=== PATIENT | male | born 1960 | race American Indian/Alaskan Native ===

== ENCOUNTER 2018-06-11 15:22 | Inpatient (IN) | payer BC ==
[2018-06-11] MEDS ORDERED: NACL 0.9% 500 ML 500 ML IV ONE (15:35)
[2018-06-11] MEDS ORDERED: MOTRIN PO ONE ×2 (15:43→15:44)
[2018-06-11 15:55] LABS: Hematocrit 30.9 % (35.5-45.6); Hemoglobin 10.2 gm/dl (11.8-15.2); Mean Corpuscular HGB Conc 33 % (32-34); Mean Corpuscular Hemoglobin 29 pg (28-32); Mean Corpuscular Volume 89 fl (84-94); Red Blood Count 3.49 M/mm3 (3.65-5.03); Red Cell Distribution Width 14.4 % (13.2-15.2)
[2018-06-11 16:12] LABS: INR 1.2 (0.87-1.13)
[2018-06-11 16:22] LABS: Calcium 8.3 mg/dL (8.4-10.2)
--- NOTE | 2018-06-11 16:31 | XRay Report ---
FINAL REPORT EXAM: XR CHEST ROUTINE 2V HISTORY: possible Sepsis TECHNIQUE: Frontal and lateral chest x-ray. PRIORS: None. FINDINGS: Cardiac and mediastinal silhouette within normal limits. Lungs are normally expanded, without significant vascular congestion. No focal consolidation, apparent pleural effusion or pneumothorax. Moderate dextroconvex curvature in the thoracic spine. IMPRESSION: 1. No acute consolidation.
[2018-06-11] MEDS ORDERED: VANCOMYCIN 1,250 MG in NACL 0.9% 500 ML 500 ML IV ONE (16:35)
[2018-06-11] MEDS ORDERED: NACL 0.9% 1000 ML IV ONE (16:35)
--- NOTE | 2018-06-11 16:41 | Emergency Department Report ---
ED General Adult HPI - General Chief complaint: Fever Stated complaint: GENERAL PAIN Time Seen by Provider: 06/11/18 16:34 Source: patient, family Mode of arrival: Wheelchair Limitations: No Limitations - History of Present Illness Initial comments: Patient is a 57-year-old male no significant past medical history who presents with fever that has been going on for the last week. Patient states that he's been having night sweats and shaking and nausea and vomiting. He states that he was in [place] for the last 2 weeks and he complains about pain throughout all of his body. Pain is moderate about a 3 out of 10 nothing makes it better nothing makes it worse is intermittent. He also states that he lost 10-12 pounds recently. He denies having any blood in his stool and states that he was not vaccinated and he did not take any anti Malaria drugs [place]. Severity scale (0 -10): 1 - Related Data Allergies Allergy/AdvReac Type Severity Reaction Status Date / Time No Known Allergies Allergy Unverified 06/11/18 15:29 ED Review of Systems ROS: Stated complaint: GENERAL PAIN Other details as noted in HPI Constitutional: chills, fever Eyes: denies: eye pain, eye discharge, vision change ENT: denies: ear pain, throat pain Respiratory: denies: cough, shortness of breath, wheezing Cardiovascular: denies: chest pain, palpitations Endocrine: no symptoms reported Gastrointestinal: nausea. denies: abdominal pain, diarrhea Genitourinary: denies: urgency, dysuria Musculoskeletal: arthralgia. denies: back pain, joint swelling Skin: denies: rash, lesions Neurological: denies: headache, weakness, paresthesias Psychiatric: denies: anxiety, depression Hematological/Lymphatic: denies: easy bleeding, easy bruising ED Past Medical Hx - Past Medical History Previous Medical History?: Yes Hx Hypertension: Yes - Surgical History Past Surgical History?: Yes Additional Surgical History: left eye surgery - Social History Smoking Status: Never Smoker Substance Use Type: None ED Physical Exam - General Limitations: No Limitations General appearance: alert, in no apparent distress - Head Head exam: Present: atraumatic, normocephalic - Eye Eye exam: Present: normal appearance - ENT ENT exam: Present: mucous membranes moist - Neck Neck exam: Present: normal inspection - Respiratory Respiratory exam: Present: normal lung sounds bilaterally. Absent: respiratory distress - Cardiovascular Cardiovascular Exam: Present: regular rate, normal rhythm. Absent: systolic murmur, diastolic murmur, rubs, gallop - GI/Abdominal GI/Abdominal exam: Present: soft, normal bowel sounds - Rectal Rectal exam: Present: deferred - Extremities Exam Extremities exam: Present: normal inspection - Back Exam Back exam: Present: normal inspection - Neurological Exam Neurological exam: Present: alert, oriented X3 - Psychiatric Psychiatric exam: Present: normal affect, normal mood - Skin Skin exam: Present: warm, dry, intact, normal color. Absent: rash ED Course Vital Signs 06/11/18 06/11/18 06/11/18 15:29 16:29 16:30 Temperature 103.1 F H Pulse Rate 129 H 111 H 111 H Respiratory 16 12 15 Rate Blood Pressure 108/58 110/56 Blood Pressure [Right] O2 Sat by Pulse 96 97 96 Oximetry 06/11/18 16:31 Temperature 102.9 F H Pulse Rate 112 H Respiratory 20 Rate Blood Pressure Blood Pressure 110/56 [Right] O2 Sat by Pulse 98 Oximetry - Reevaluation(s) Reevaluation #1: 06/11/18 19:22 Patient is feeling better heart rate is 105 ED Medical Decision Making - Lab Data Result diagrams: 06/11/18 15:37 06/11/18 15:37 Lab Results 06/11/18 06/11/18 06/11/18 Range/Units 15:37 15:37 15:37 WBC 4.9 (4.5-11.0) K/mm3 RBC 3.49 L (3.65-5.03) M/mm3 Hgb 10.2 L (11.8-15.2) gm/dl Hct 30.9 L (35.5-45.6) % MCV 89 (84-94) fl MCH 29 (28-32) pg MCHC 33 (32-34) % RDW 14.4 (13.2-15.2) % [place] % (Auto) Front Elevator Operator PT 15.7 H (12.2-14.9) Sec. INR 1.20 H (0.87-1.13) VBG pH (7.320-7.420) Sodium 132 L (137-145) mmol/L Potassium 2.8 L* (3.6-5.0) mmol/L Chloride 91.4 L (98-107) mmol/L Carbon Dioxide 26 (22-30) mmol/L Anion Gap 17 mmol/L BUN 24 H (9-20) mg/dL Creatinine 1.6 H (0.8-1.5) mg/dL Estimated GFR 45 ml/min BUN/Creatinine Ratio 15 % Glucose 178 H (75-100) mg/dL Lactic Acid (0.7-2.0) mmol/L Calcium 8.3 L (8.4-10.2) mg/dL Total Bilirubin 1.90 H (0.1-1.2) mg/dL AST 22 (5-40) units/L ALT 14 (7-56) units/L Alkaline Phosphatase 47 (35-129) units/L Total Protein 6.4 (6.3-8.2) g/dL Albumin 3.0 L (3.9-5) g/dL Albumin/Globulin Ratio 0.9 % 06/11/18 06/11/18 Range/Units 15:37 15:37 WBC (4.5-11.0) K/mm3 RBC (3.65-5.03) M/mm3 Hgb (11.8-15.2) gm/dl Hct (35.5-45.6) % MCV (84-94) fl MCH (28-32) pg MCHC (32-34) % RDW (13.2-15.2) % [place] % (Auto) PT (12.2-14.9) Sec. INR (0.87-1.13) VBG pH 7.486 H (7.320-7.420) Sodium (137-145) mmol/L Potassium (3.6-5.0) mmol/L Chloride (98-107) mmol/L Carbon Dioxide (22-30) mmol/L Anion Gap mmol/L BUN (9-20) mg/dL Creatinine (0.8-1.5) mg/dL Estimated GFR ml/min BUN/Creatinine Ratio % Glucose (75-100) mg/dL Lactic Acid 3.60 H* (0.7-2.0) mmol/L Calcium (8.4-10.2) mg/dL Total Bilirubin (0.1-1.2) mg/dL AST (5-40) units/L ALT (7-56) units/L Alkaline Phosphatase (35-129) units/L Total Protein (6.3-8.2) g/dL Albumin (3.9-5) g/dL Albumin/Globulin Ratio % - EKG Data -: EKG Interpreted by Me - EKG Data 06/11/18 16:51 EKG shows sinus tachycardia at rate [address] segment elevation and no T-wave inversion normal axis. - Radiology Data Radiology results: report reviewed, image reviewed Chest x-ray: Shows no acute cardiopulmonary disease - Medical Decision Making Chief medical diagnosis: Sepsis secondary to Malaria infection Differential medical diagnosis: Sepsis secondary to Pneumonia, sepsis secondary to UTI I will get CBC, thick and thin smears, CMP, 30 mL per kilo fluid bolus, broad- spectrum IV antibiotics and lactic acid. Due to patient's potentially life-threatening condition I'll have patient admitted to the hospitalist service. Discussed with the patient and patient's family. Critical Care Time: Yes Critical care time in (mins) excluding proc time.: 50 Critical care attestation.: If time is entered above; I have spent that time in minutes in the direct care of this critically ill patient, excluding procedure time. Critical care time spent at the patient's bedside for 30 minutes Critical care time spent with consult team physician 5 minutes Critical care time spent looking over her laboratory test 10 minutes Critical care time sent with patient's family 5 minutes. ED Disposition Clinical Impression: Hypokalemia, Nausea, Myalgia, DIANA (acute kidney injury) Sepsis Qualifiers: Sepsis type: sepsis due to unspecified organism Qualified Code(s): A41.9 - Sepsis, unspecified organism Disposition: OP ADMIT IP TO THIS HOSP Is pt being admited?: Yes Does the pt Need Aspirin: No Condition: Stable
[2018-06-11] MEDS ORDERED: K-DUR PO ONE (16:48)
[2018-06-11 17:12] LABS: Anisocytosis 1+; Basophils % (Manual) 0 % (0.0-1.8); Eosinophils % (Manual) 0 % (0.0-4.3); Total Cells Counted 100
[2018-06-11 17:29] LABS: Platelet Estimate Appears Decreased; Poikilocytosis 1+
[2018-06-11 17:36] LABS: Platelet Count 45 K/mm3 (140-440)
[2018-06-11] MEDS ORDERED: MAGNESIUM SULFATE 1 GM in NACL 0.9% 50 ML IV ONE (17:51)
[2018-06-11] MEDS: MAXIPIME/NS 2 GM/100 ML 2 GM/100 ML BAG IV SCH ×2 (17:52→21:59)
[2018-06-11] MEDS: KCL 10MEQ/100ML 10 MEQ/100 ML BAG IV SCH ×2 (17:53→20:09)
[2018-06-11] MEDS ORDERED: TYLENOL PO ONE (19:53)
[2018-06-11] MEDS ORDERED: TORADOL IV ONE (19:53)
[2018-06-11 23:07] LABS: Bilirubin,Urine NEG (Negative); Blood,Urine MOD (Negative); Mucus,Urine FEW /HPF; Protein,Urine <15 mg/dL mg/dL (Negative)
[2018-06-11 23:11] LABS: Color,Urine Dark Yellow (Yellow)
[2018-06-11] MEDS ORDERED: MORPHINE IV PRN (23:12)
[2018-06-11] MEDS ORDERED: AMBIEN PO PRN (23:12)
[2018-06-11] MEDS ORDERED: PERCOCET 5/325 PO PRN (23:12)
[2018-06-11] MEDS ORDERED: TYLENOL PO PRN (23:12)
[2018-06-11] MEDS ORDERED: ZOFRAN IV PRN (23:12)
[2018-06-11] MEDS ORDERED: SODIUM CHLORIDE FLUSH SYRINGE 10 ML IV PRN (23:12)
[2018-06-11] MEDS ORDERED: PLAQUENIL PO ONE (23:15)
[2018-06-12] MEDS: D5NS 1,000 ML IV SCH ×2 (00:48→13:42)
[2018-06-12] MEDS ORDERED: K-DUR PO ONE (05:22)
[2018-06-12] MEDS ORDERED: K-DUR PO SCH (05:22)
--- NOTE | 2018-06-12 06:22 | History and Physical Report ---
CHIEF COMPLAINT: Fever and chills for 3 days. HISTORY OF PRESENT ILLNESS: A 57-year-old black male from [place] comes in for fever and chills for 3 days, intermittent in nature. The patient has been to [place] and returned back from [place] 3 weeks ago. The patient went to malaria-endemic areas. In the Emergency Room, the patient's CBC and ThinPrep picked up showed positive for malaria parasites. No dysuria, no cough, no chest pain. No abdominal pain. PAST MEDICAL HISTORY: Borderline hypertension and does not take any medications. PAST SURGICAL HISTORY: None. FAMILY HISTORY: Hypertension. SOCIAL HISTORY: Smokes about half a pack a day. REVIEW OF SYSTEMS: Significant for general fever and chills and intermittent in nature for 3 days. Other review of systems are negative. A 14-point review of systems done. PHYSICAL EXAMINATION: GENERAL: Middle-aged male, cooperative during examination, cheerful. VITAL SIGNS: Blood pressure is 136/76, respirations are 16, temperature is 99, respiratory rate is 16. HEENT: Unremarkable. Pupils are equal and reactive, slightly pale mucous membranes. NECK: Supple, no lymphadenopathy, no thyromegaly. LUNGS: Clear to auscultation and percussion. Good air entry. CARDIOVASCULAR: S1, S2 heard. No gallop, no murmur, no rub. Apical impulse in the left fifth intercostal space and midclavicular line. ABDOMEN: Soft and benign. No hepatosplenomegaly. No guarding, no rigidity. Hernial orifices are normal. Splenomegaly present. Hernial orifices are normal. EXTREMITIES: Good pedal pulses. No pedal edema. CENTRAL NERVOUS SYSTEM: Alert and oriented x 4, nonfocal exam. SKIN: Normal. LABORATORY DATA: Significant for high lactic acid of around 3.6. [employer] is down. Labs are not available. Also slightly low H and H. Otherwise, electrolytes are normal. Has low potassium. ASSESSMENT AND PLAN: 1. Malaria infection. The patient started on chloroquine 800 mg on day #1, 600 mg on day #2 and 600 mg on day #3. Discussed with pharmacy about the dosage. Also, Infectious Disease, Dr. Pineda consulted. 2. Hypokalemia, supplemented. 3. Source is systemic inflammatory response syndrome. High lactic acid may be secondary to the fever and chills. Broad-spectrum antibiotic started, but may be discontinued in 24 hours. At this point, I feel there is no need for IV antibiotics. IV Zosyn initiated. 4. Deep venous thrombosis prophylaxis, Lovenox 40 mg subcutaneous daily. JOB# [id number] GILES/NTS
[2018-06-12] MEDS: MAXIPIME/NS 2 GM/100 ML 2 GM/100 ML BAG IV SCH (06:41)
--- NOTE | 2018-06-12 08:04 | Event Note ---
Date: 06/11/18 See dictated H/P in reports Malaria infection Sepsis unlikely Hypokalemia May discontinue Abx ID consult requested
[2018-06-12 08:12] LABS: Alanine Aminotransferase 12 units/L (7-56); Albumin 2.8 g/dL (3.9-5); BUN/Creatinine Ratio 19; Blood Urea Nitrogen 25 mg/dL (9-20); Hemolysis Index 5
--- NOTE | 2018-06-12 08:51 | Progress Note ---
Assessment and Plan Assessment and plan: -- Malaria; continue management per protocol Follow ID evaluation and recommendations -- Hypokalemia; replace per protocol and monitor his Check magnesium --Hyponatremia; continue IV fluids, monitor electrolytes --Acute kidney injury; probably secondary to vasomotor nephropathy Continue IV hydration and closely monitor renal function and avoid nephrotoxins --Lactic acidosis; resolved, closely monitor --Moderate protein calorie malnutrition; nutrition supplements and supportive care --DVT prophylaxis with Lovenox Follow-up ID evaluation and recommendations Closely monitor the patient and adjust the management as needed Plan of care reviewed with the patient and the family member at the bedside History Interval history: Patient seen and examined medical records reviewed No new events reported by the nursing Patient was admitted with malaria Feels slightly better Denies fever or chills Alert awake oriented 3 Vital signs reviewed Hospitalist Physical - Constitutional Vitals: Temp Pulse Resp BP Pulse Ox 98.3 F 96 H 16 95/51 97 06/12/18 05:55 06/12/18 05:55 06/12/18 05:55 06/12/18 05:55 06/12/18 05:55 General appearance: Present: no acute distress, well-nourished - EENT Eyes: Present: PERRL, EOM intact - Neck Neck: Present: supple, normal ROM - Respiratory Respiratory effort: normal Respiratory: negative: rales, rhonchi, wheezing - Cardiovascular Rhythm: regular Heart Sounds: Present: S1 & S2 - Extremities Extremities: no ischemia, No edema - Abdominal General gastrointestinal: soft, non-tender, non-distended, normal bowel sounds - Integumentary Integumentary: Present: clear, warm - Psychiatric Psychiatric: appropriate mood/affect, cooperative - Neurologic Neurologic: CNII-XII intact, moves all extremities Results - Labs CBC & Chem 7: 06/11/18 15:37 06/12/18 10:55 Labs: Laboratory Last Values WBC 4.9 K/mm3 (4.5-11.0) 06/11/18 15:37 RBC 3.49 M/mm3 (3.65-5.03) L 06/11/18 15:37 Hgb 10.2 gm/dl (11.8-15.2) L 06/11/18 15:37 Hct 30.9 % (35.5-45.6) L 06/11/18 15:37 MCV 89 fl (84-94) 06/11/18 15:37 MCH 29 pg (28-32) 06/11/18 15:37 MCHC 33 % (32-34) 06/11/18 15:37 RDW 14.4 % (13.2-15.2) 06/11/18 15:37 Plt Count 45 K/mm3 (140-440) L 06/11/18 15:37 [place] % (Auto) Crab Backer 06/11/18 15:37 Add Manual Diff Complete 06/11/18 15:37 Total Counted 100 06/11/18 15:37 Seg Neuts % (Manual) 75.0 % (40.0-70.0) H 06/11/18 15:37 Band Neutrophils % 1.0 % 06/11/18 15:37 Lymphocytes % (Manual) 14.0 % (13.4-35.0) 06/11/18 15:37 Reactive Lymphs % (Man) 1.0 % 06/11/18 15:37 Monocytes % (Manual) 9.0 % (0.0-7.3) H 06/11/18 15:37 Eosinophils % (Manual) 0 % (0.0-4.3) 06/11/18 15:37 Basophils % (Manual) 0 % (0.0-1.8) 06/11/18 15:37 Metamyelocytes % 0 % 06/11/18 15:37 Myelocytes % 0 % 06/11/18 15:37 Promyelocytes % 0 % 06/11/18 15:37 Blast Cells % 0 % 06/11/18 15:37 Nucleated RBC % Not Reportable 06/11/18 15:37 Seg Neutrophils # Man 3.7 K/mm3 (1.8-7.7) 06/11/18 15:37 Band Neutrophils # 0.0 K/mm3 06/11/18 15:37 Lymphocytes # (Manual) 0.7 K/mm3 (1.2-5.4) L 06/11/18 15:37 Abs React Lymphs (Man) 0.0 K/mm3 06/11/18 15:37 Monocytes # (Manual) 0.4 K/mm3 (0.0-0.8) 06/11/18 15:37 Eosinophils # (Manual) 0.0 K/mm3 (0.0-0.4) 06/11/18 15:37 Basophils # (Manual) 0.0 K/mm3 (0.0-0.1) 06/11/18 15:37 Metamyelocytes # 0.0 K/mm3 06/11/18 15:37 Myelocytes # 0.0 K/mm3 06/11/18 15:37 Promyelocytes # 0.0 K/mm3 06/11/18 15:37 Blast Cells # 0.0 K/mm3 06/11/18 15:37 WBC Morphology Not Reportable 06/11/18 15:37 Hypersegmented Neuts Not Reportable 06/11/18 15:37 Hyposegmented Neuts Not Reportable 06/11/18 15:37 Hypogranular Neuts Not Reportable 06/11/18 15:37 Smudge Cells Not Reportable 06/11/18 15:37 Toxic Granulation Not Reportable 06/11/18 15:37 Toxic Vacuolation Not Reportable 06/11/18 15:37 Dohle Bodies Not Reportable 06/11/18 15:37 Pelger-Huet Anomaly Not Reportable 06/11/18 15:37 Lauren Rods Not Reportable 06/11/18 15:37 Platelet Estimate Appears decreased 06/11/18 15:37 Clumped Platelets Not Reportable 06/11/18 15:37 Plt Clumps, EDTA Not Reportable 06/11/18 15:37 Large Platelets Not Reportable 06/11/18 15:37 Giant Platelets Not Reportable 06/11/18 15:37 Platelet Satelliting Not Reportable 06/11/18 15:37 Plt Morphology Comment Not Reportable 06/11/18 15:37 RBC Morphology Not Reportable 06/11/18 15:37 Dimorphic RBCs Not Reportable 06/11/18 15:37 Polychromasia Not Reportable 06/11/18 15:37 Hypochromasia Not Reportable 06/11/18 15:37 Poikilocytosis 1+ 06/11/18 15:37 Anisocytosis 1+ 06/11/18 15:37 Microcytosis Not Reportable 06/11/18 15:37 Macrocytosis Not Reportable 06/11/18 15:37 Spherocytes Not Reportable 06/11/18 15:37 Pappenheimer Bodies Not Reportable 06/11/18 15:37 Sickle Cells Not Reportable 06/11/18 15:37 Target Cells Not Reportable 06/11/18 15:37 Tear Drop Cells Not Reportable 06/11/18 15:37 Ovalocytes Not Reportable 06/11/18 15:37 Helmet Cells Not Reportable 06/11/18 15:37 Sprague-Amory Bodies Not Reportable 06/11/18 15:37 [place] Rings Not Reportable 06/11/18 15:37 Marston Cells Not Reportable 06/11/18 15:37 Bite Cells Not Reportable 06/11/18 15:37 Crenated Cell Not Reportable 06/11/18 15:37 Elliptocytes Not Reportable 06/11/18 15:37 Acanthocytes (Spur) Not Reportable 06/11/18 15:37 Rouleaux Not Reportable 06/11/18 15:37 Hemoglobin C Crystals Not Reportable 06/11/18 15:37 Schistocytes Not Reportable 06/11/18 15:37 Malaria parasites Present 06/11/18 15:37 Tomasz Bodies Not Reportable 06/11/18 15:37 Hem Pathologist Commnt Sent to pathology 06/11/18 15:37 PT 15.7 Sec. (12.2-14.9) H 06/11/18 15:37 INR 1.20 (0.87-1.13) H 06/11/18 15:37 VBG pH 7.486 (7.320-7.420) H 06/11/18 15:37 Sodium 132 mmol/L (137-145) L 06/11/18 15:37 Potassium 2.8 mmol/L (3.6-5.0) L* 06/11/18 15:37 Chloride 91.4 mmol/L (98-107) L 06/11/18 15:37 Carbon Dioxide 26 mmol/L (22-30) 06/11/18 15:37 Anion Gap 17 mmol/L 06/11/18 15:37 BUN 24 mg/dL (9-20) H 06/11/18 15:37 Creatinine 1.6 mg/dL (0.8-1.5) H 06/11/18 15:37 Estimated GFR 45 ml/min 06/11/18 15:37 BUN/Creatinine Ratio 15 % 06/11/18 15:37 Glucose 178 mg/dL (75-100) H 06/11/18 15:37 Hemoglobin A1c 4.7 % (4-6) 06/11/18 15:37 Lactic Acid 1.70 mmol/L (0.7-2.0) 06/11/18 20:16 Calcium 8.3 mg/dL (8.4-10.2) L 06/11/18 15:37 Total Bilirubin 1.90 mg/dL (0.1-1.2) H 06/11/18 15:37 AST 22 units/L (5-40) 06/11/18 15:37 ALT 14 units/L (7-56) 06/11/18 15:37 Alkaline Phosphatase 47 units/L (35-129) 06/11/18 15:37 Total Protein 6.4 g/dL (6.3-8.2) 06/11/18 15:37 Albumin 3.0 g/dL (3.9-5) L 06/11/18 15:37 Albumin/Globulin Ratio 0.9 % 06/11/18 15:37 Urine Color Dark yellow (Yellow) 06/11/18 22:21 Urine Turbidity Clear (Clear) 06/11/18 22:21 Urine pH 5.0 (5.0-7.0) 06/11/18 22:21 Ur Specific [place] 1.016 (1.003-1.030) 06/11/18 22:21 Urine Protein <15 mg/dl mg/dL (Negative) 06/11/18 22:21 Urine Glucose (UA) Neg mg/dL (Negative) 06/11/18 22:21 Urine Ketones Neg mg/dL (Negative) 06/11/18 22:21 Urine Blood Mod (Negative) 06/11/18 22:21 Urine Nitrite Neg (Negative) 06/11/18 22:21 Urine Bilirubin Neg (Negative) 06/11/18 22:21 Urine Urobilinogen 4.0 mg/dL (<2.0) 06/11/18 22:21 Ur Leukocyte Esterase Neg (Negative) 06/11/18 22:21 Urine WBC (Auto) 2.0 /HPF (0.0-6.0) 06/11/18 22:21 Urine RBC (Auto) 4.0 /HPF (0.0-6.0) 06/11/18 22:21 Urine Mucus Few /HPF 06/11/18 22:21 Blood Type O POSITIVE 06/11/18 16:44 Antibody Screen Negative 06/11/18 16:44
[2018-06-12] MEDS: PLAQUENIL PO SCH (09:54)
[2018-06-12] MEDS: LOVENOX SUB-Q SCH (09:54)
[2018-06-12] MEDS: SODIUM CHLORIDE FLUSH SYRINGE 10 ML IV SCH ×2 (09:55→21:29)
[2018-06-12] MEDS ORDERED: LOVENOX SUB-Q SCH (10:00)
[2018-06-12 12:09] LABS: BUN/Creatinine Ratio 23; Blood Urea Nitrogen 25 mg/dL (9-20); Calcium 8.3 mg/dL (8.4-10.2); Hemolysis Index 0
[2018-06-12] MEDS: KCL 10MEQ/100ML 10 MEQ/100 ML BAG IV SCH ×4 (12:21→17:49)
--- NOTE | 2018-06-12 15:40 | Consultation ---
History of Present Illness - Reason for Consult Consult date: 06/12/18 malaria Requesting physician: DAVID MAYNARD - History of Present Illness 57 y/o male with no significant past medical history, admitted on 06/11/18 due 2 days history of fever at 102 and malaise. Patient arrived from 2-week trip to [facility] on 06/09. He did not take any malaria prophylaxis before or during the trip. He also developed night sweats and shaking and nausea and vomiting.Reports severe Body aches. He also states that he lost 10-12 pounds recently. Denies tob, etoh, drugs. Denies sore throat, runny nose and diarrhea. In the ED, temp 103, HR 129, R 16, BP 108/58. WBC 4.9. Hg 10.2. Plat 45. Sodium 132. K 2.8. Creat 1.6. Lactate 3.6. UA neg. Total bili 1.9. Malaria smear POSITIVE at 0.3% showed Plasmodium species. CXR neg. Microbiology: Blood cultures: 06/11 neg Current Antimicrobials: Cefepime Previous Antimicrobials: Past History Past Surgical History: No surgical history Social history: no significant social history Family history: no significant family history Medications and Allergies Allergies Allergy/AdvReac Type Severity Reaction Status Date / Time No Known Allergies Allergy Unverified 06/11/18 15:29 Active Meds: Active Medications Acetaminophen (Tylenol) 650 mg PO Q4H PRN PRN Reason: Pain MILD(1-3)/Fever >100.5/BROWN Enoxaparin Sodium (Lovenox) 40 mg SUB-Q QDAY@1000 JARVIS Last Admin: 06/12/18 09:54 Dose: 40 mg Hydroxychloroquine Sulfate (Plaquenil) 600 mg PO QDAY JARVIS Stop: 06/13/18 10:01 Last Admin: 06/12/18 09:54 Dose: 600 mg Dextrose/Sodium Chloride (D5ns) 1,000 mls @ 75 mls/hr IV DIRECT JARVIS Last Admin: 06/12/18 13:42 Dose: 75 mls/hr Potassium Chloride (Kcl 10meq/100ml) 10 meq in 100 mls @ 100 mls/hr IV Q1H JARVIS Stop: 06/12/18 14:59 Last Admin: 06/12/18 15:12 Dose: 100 mls/hr Cefepime HCl (Maxipime/Ns 2 Gm/100 Ml) 2 gm in 100 mls @ 200 mls/hr IV Q12HR JARVIS; Protocol Morphine Sulfate (Morphine) 2 mg IV Q4H PRN PRN Reason: Pain, Moderate (4-6) Ondansetron HCl (Zofran) 4 mg IV Q8H PRN PRN Reason: Nausea And Vomiting Oxycodone/Acetaminophen (Percocet 5/325) 1 tab PO Q6H PRN PRN Reason: Pain, Moderate (4-6) Sodium Chloride (Sodium Chloride Flush Syringe 10 Ml) 10 ml IV BID JARVIS Last Admin: 06/12/18 09:55 Dose: 10 ml Sodium Chloride (Sodium Chloride Flush Syringe 10 Ml) 10 ml IV PRN PRN PRN Reason: LINE FLUSH Last Admin: 06/12/18 00:48 Dose: 10 ml Zolpidem Tartrate (Ambien) 5 mg PO QHS PRN PRN Reason: Insomnia Physical Examination - Physical Exam Narrative exam: General appearance: Alert in NAD, conversant Eyes: icteric sclerae, moist conjunctivae; no lid-lag; PERRLA HENT: Atraumatic; oropharynx clear with moist mucous membranes and no mucosal ulcerations/no oral thrush; normal hard and soft palate. Normal external ears. Neck: Trachea midline; supple, no thyromegaly or lymphadenopathy Lungs: CTA, with normal respiratory effort and no intercostal retractions CV: RRR, no murmurs Abdomen: Soft, non-tender; no masses or hepatosplenomegaly Extremities: No peripheral edema or extremity lymphadenopathy Skin: Normal temperature, turgor and texture; no rash, ulcers or subcutaneous nodules Psych: Appropriate affect, alert and oriented to person, place and time. Neuro: alert and oriented x 3. Moving all extermities Lines: No CVL / PICC - Constitutional Vitals: Vital Signs Temp Pulse Resp BP Pulse Ox 97.9 F 99 H 16 105/66 99 06/12/18 11:44 06/12/18 11:44 06/12/18 11:44 06/12/18 11:44 06/12/18 11:44 Temperature -Last 24 Hours Temperature 97.9 F Temperature 98.3 F Temperature 98.3 F Temperature 98 F Temperature 102.9 F Results - Labs CBC & Chem 7: 06/11/18 15:37 06/12/18 10:55 Labs: Abnormal lab results 06/11/18 06/11/18 06/11/18 Range/Units 15:37 15:37 15:37 RBC 3.49 L (3.65-5.03) M/mm3 Hgb 10.2 L (11.8-15.2) gm/dl Hct 30.9 L (35.5-45.6) % Plt Count 45 L (140-440) K/mm3 Seg Neuts % (Manual) 75.0 H (40.0-70.0) % Monocytes % (Manual) 9.0 H (0.0-7.3) % Lymphocytes # (Manual) 0.7 L (1.2-5.4) K/mm3 PT 15.7 H (12.2-14.9) Sec. INR 1.20 H (0.87-1.13) VBG pH (7.320-7.420) Sodium 132 L (137-145) mmol/L Potassium 2.8 L* (3.6-5.0) mmol/L Chloride 91.4 L (98-107) mmol/L BUN 24 H (9-20) mg/dL Creatinine 1.6 H (0.8-1.5) mg/dL Glucose 178 H (75-100) mg/dL Lactic Acid (0.7-2.0) mmol/L Calcium 8.3 L (8.4-10.2) mg/dL Total Bilirubin 1.90 H (0.1-1.2) mg/dL Total Protein (6.3-8.2) g/dL Albumin 3.0 L (3.9-5) g/dL 06/11/18 06/11/18 06/12/18 Range/Units 15:37 15:37 04:00 RBC (3.65-5.03) M/mm3 Hgb (11.8-15.2) gm/dl Hct (35.5-45.6) % Plt Count (140-440) K/mm3 Seg Neuts % (Manual) (40.0-70.0) % Monocytes % (Manual) (0.0-7.3) % Lymphocytes # (Manual) (1.2-5.4) K/mm3 PT (12.2-14.9) Sec. INR (0.87-1.13) VBG pH 7.486 H (7.320-7.420) Sodium (137-145) mmol/L Potassium 3.4 L D (3.6-5.0) mmol/L Chloride (98-107) mmol/L BUN 25 H (9-20) mg/dL Creatinine (0.8-1.5) mg/dL Glucose 110 H (75-100) mg/dL Lactic Acid 3.60 H* (0.7-2.0) mmol/L Calcium 8.0 L (8.4-10.2) mg/dL Total Bilirubin 1.90 H (0.1-1.2) mg/dL Total Protein 6.0 L (6.3-8.2) g/dL Albumin 2.8 L (3.9-5) g/dL 06/12/18 Range/Units 10:55 RBC (3.65-5.03) M/mm3 Hgb (11.8-15.2) gm/dl Hct (35.5-45.6) % Plt Count (140-440) K/mm3 Seg Neuts % (Manual) (40.0-70.0) % Monocytes % (Manual) (0.0-7.3) % Lymphocytes # (Manual) (1.2-5.4) K/mm3 PT (12.2-14.9) Sec. INR (0.87-1.13) VBG pH (7.320-7.420) Sodium (137-145) mmol/L Potassium 3.5 L (3.6-5.0) mmol/L Chloride (98-107) mmol/L BUN 25 H (9-20) mg/dL Creatinine (0.8-1.5) mg/dL Glucose 121 H (75-100) mg/dL Lactic Acid (0.7-2.0) mmol/L Calcium 8.3 L (8.4-10.2) mg/dL Total Bilirubin (0.1-1.2) mg/dL Total Protein (6.3-8.2) g/dL Albumin (3.9-5) g/dL Assessment and Plan Assessment: 1) Sepsis: Present on admission, manifested by fever, tachycardia, hypotension, increased lactate. Etiology most likely malaria. 2) Malaria:Malaria smear POSITIVE at 0.3% showed Plasmodium species. Low parasitemia; he is responding to hydroxychlroquine. Unknown specie 3) DIANA: better 4) Thrombocytopenia 5) Hyponatremia 6) Elevated bili Plan: -continue hydroxychlroquine 800 mg PO x 1 followed by 400 mg PO at 6, 24 and 48h (total 2000 mg) -check G6PD level to start primaquine at the ID office to avoid recurrent malaria -ID clinic f/u in 2 weeks -monitor fever, ok to d/c if fever resolved x 24h Thank you for your consultation, will follow up with you. Anna Araya MD Infectious Diseases Specialist [facility] ([facility] M [phone] O [phone]
[2018-06-12] MEDS ORDERED: MAXIPIME/NS 2 GM/100 ML 2 GM/100 ML BAG IV SCH (22:00)
[2018-06-13] MEDS: D5NS 1,000 ML IV SCH (03:04)
[2018-06-13 05:48] LABS: Hematocrit 25.5 % (35.5-45.6); Hemoglobin 8.5 gm/dl (11.8-15.2); Mean Corpuscular HGB Conc 33 % (32-34); Mean Corpuscular Hemoglobin 30 pg (28-32); Mean Corpuscular Volume 88 fl (84-94); Red Blood Count 2.89 M/mm3 (3.65-5.03); Red Cell Distribution Width 14.9 % (13.2-15.2)
[2018-06-13 05:55] LABS: Platelet Count 60 K/mm3 (140-440)
[2018-06-13 07:11] LABS: Alanine Aminotransferase 41 units/L (7-56); Albumin 2.4 g/dL (3.9-5); BUN/Creatinine Ratio 15; Bilirubin,Direct 0.5 mg/dL (0-0.2); Blood Urea Nitrogen 16 mg/dL (9-20); Hemolysis Index 4
[2018-06-13 07:29] LABS: Anisocytosis 1+; Band Neutrophils # (Manual) 0.1 K/mm3; Basophils % (Manual) 0 % (0.0-1.8); Hypochromasia 1+; Ovalocytes 1+; Platelet Estimate Appears Decreased; Poikilocytosis 1+; Total Cells Counted 100
[2018-06-13] MEDS ORDERED: PLAQUENIL PO ONE (11:00)
[2018-06-13] MEDS: PLAQUENIL PO SCH (11:17)
[2018-06-13] MEDS: LOVENOX SUB-Q SCH (11:18)
[2018-06-13] MEDS: SODIUM CHLORIDE FLUSH SYRINGE 10 ML IV SCH (11:18)
[2018-06-13 12:35] VITALS: BP 103/65
--- NOTE | 2018-06-13 13:10 | Discharge Summary ---
Providers - Providers Date of Admission: 06/11/18 23:05 Date of discharge: 06/13/18 Attending physician: STEPH PEREZ 06/11/18 23:12 Consult to Physician [CONS] Routine Comment: Consulting Provider: OWEN JIMENEZ Physician Instructions: Reason For Exam: malaria Primary care physician: [facility] [employer] Hospitalization Reason for admission: fever chills and rigors Condition: Stable Pertinent studies: Chest x-ray; no acute abnormality noted Blood smear; parasite smear; parasitemia ; 0.34% [06/11/2018 ] parasitemia 0.19%[06/13/2018] Hospital course: Very pleasant 57-year-old -[place] male patient from [facility] was admitted through emergency room with fever and chills of 3 days' duration patient recently visited [facility] 3 weeks ago visited malaria endemic areas Admitted to the hospital, blood smear for malaria parasite was positive Admitted and treated with chloroquine 800 day 1, 400 day 2, 400 day3 and 400 day4, total 2000 mg Patient received 800, 400, 400 during the hospital stay, and prescription is given for 400 mg to be taken upon discharge Patient was symptomatically managed, evaluated and advised by ID We'll recommended to follow in the office for further evaluation upon discharge Today patient is comfortable in no new complaints Vital signs reviewed stable Physical examination is unremarkable prior to discharge Patient had mild drop in hemoglobin, advised to check CBC at PMDs office in one week Patient is hemodynamically and clinically stable and cleared by ID for discharge Discharge diagnosis; -- Malaria; received hydro-chloroquine total 1600 mg in the hospital Advised 400 to be taken tonight upon discharge[Total 2000 mg as recommended by ID] -- Hypokalemia; corrected --Hyponatremia; improved --Acute kidney injury; resolved --Lactic acidosis; resolved, closely monitor --Moderate protein calorie malnutrition; nutrition supplements and supportive care Disposition: DC-01 TO HOME OR SELFCARE Time spent for discharge: 32 min Core Measure Documentation - Palliative Care Palliative Care/ Comfort Measures: Not Applicable - Core Measures Any of the following diagnoses?: none Exam - Constitutional Vitals: Temp Pulse Resp BP Pulse Ox 98.5 F 102 H 20 103/65 96 06/13/18 11:28 06/13/18 11:28 06/13/18 11:28 06/13/18 11:28 06/13/18 11:28 General appearance: Present: no acute distress, well-nourished - EENT Eyes: Present: PERRL, EOM intact - Neck Neck: Present: supple, normal ROM - Respiratory Respiratory effort: normal Respiratory: negative: rales, rhonchi - Cardiovascular Rhythm: regular Heart Sounds: Present: S1 & S2 - Extremities Extremities: no ischemia, pulses intact - Abdominal General gastrointestinal: Present: soft, non-tender, non-distended, normal bowel sounds - Integumentary Integumentary: Present: clear, warm - Musculoskeletal Musculoskeletal: strength equal bilaterally - Psychiatric Psychiatric: appropriate mood/affect, cooperative - Neurologic Neurologic: CNII-XII intact, moves all extremities Plan Activity: no restrictions Diet: regular Additional Instructions: Advised to follow infectious diseases[Dr. Pineda] per schedule. Mild drop in hemoglobin ,Check CBC at PMDs office in one week Follow up with: PRIMARY CARE, [Primary Care Provider] - 3-5 Days OWEN JIMENEZ MD [Staff Physician] - 14 Days Prescriptions: Hydroxychloroquine [Plaquenil] 400 mg PO QDAY #1 tablet oxyCODONE /ACETAMINOPHEN [Percocet 5/325 mg] 1 tab PO QDAY PRN #5 tablet PRN Reason: Pain, Moderate (4-6)
--- NOTE | 2018-06-13 13:16 | Progress Note ---
Assessment and Plan Assessment: 1) Sepsis: better, fever resolved. Etiology most likely malaria. 2) Malaria: Malaria smear POSITIVE at 0.3% showed Plasmodium species. Low parasitemia; he is responding to hydroxychlroquine. Unknown specie 3) DIANA: better 4) Thrombocytopenia - better 5) Hyponatremia - better 6) Elevated bili Plan: -continue hydroxychlroquine 800 mg PO x 1 followed by 400 mg PO at 6, 24 and 48h (total 2000 mg) -f/u G6PD level to start primaquine at the ID office to avoid recurrent malaria - rivas sent -ID clinic f/u in 2 weeks -ok to d/c home Discussed with Dr Slater Thank you for your consultation, will follow up with you. Anna Araya MD Infectious Diseases Specialist [facility] M [phone] O [phone] Subjective Date of service: 06/13/18 Principal diagnosis: malaria Interval history: Feels better, no fever for 48h, wants to go. Microbiology: Blood cultures: 06/11 neg Current Antimicrobials: hydroxichloroquine 06/13 Previous Antimicrobials: Cefepime Objective - Exam Narrative Exam: General appearance: Alert in NAD, conversant Eyes: icteric sclerae, moist conjunctivae; no lid-lag; PERRLA HENT: Atraumatic; oropharynx clear with moist mucous membranes and no mucosal ulcerations/no oral thrush; normal hard and soft palate. Normal external ears. Neck: Trachea midline; supple, no thyromegaly or lymphadenopathy Lungs: CTA, with normal respiratory effort and no intercostal retractions CV: RRR, no murmurs Abdomen: Soft, non-tender; no masses or hepatosplenomegaly Extremities: No peripheral edema or extremity lymphadenopathy Skin: Normal temperature, turgor and texture; no rash, ulcers or subcutaneous nodules Psych: Appropriate affect, alert and oriented to person, place and time. Neuro: alert and oriented x 3. Moving all extermities Lines: No CVL / PICC - Constitutional Vitals: Vital Signs Temp Pulse Resp BP Pulse Ox 98.5 F 102 H 20 103/65 96 06/13/18 11:28 06/13/18 11:28 06/13/18 11:28 06/13/18 11:28 06/13/18 11:28 Temperature -Last 24 Hours Temperature 98.5 F Temperature 99.6 F Temperature 98.2 F Temperature 99.9 F - Labs CBC & Chem 7: 06/13/18 05:12 06/13/18 05:12 Labs: Abnormal lab results 06/13/18 06/13/18 Range/Units 05:12 05:12 WBC 3.8 L (4.5-11.0) K/mm3 RBC 2.89 L (3.65-5.03) M/mm3 Hgb 8.5 L (11.8-15.2) gm/dl Hct 25.5 L (35.5-45.6) % Plt Count 60 L (140-440) K/mm3 Lymphocytes # (Manual) 0.9 L (1.2-5.4) K/mm3 Glucose 107 H (75-100) mg/dL Calcium 8.0 L (8.4-10.2) mg/dL Direct Bilirubin 0.5 H (0-0.2) mg/dL AST 58 H (5-40) units/L Total Protein 5.6 L (6.3-8.2) g/dL Albumin 2.4 L (3.9-5) g/dL
[2018-06-14] MEDS ORDERED: PLAQUENIL PO ONE
== END 2018-06-13 15:00 | disposition home or self-care (01) | DRG 871 ==
LOC: ED 15:22 → 3A 23:05
PROVIDERS: ADMIT Internal Medicine; ATTEND Internal Medicine
DX: A41.9 Sepsis, unspecified organism (principal); N17.0 Acute kidney failure with tubular necrosis; E87.1 Hypo-osmolality and hyponatremia; B54 Unspecified malaria; E44.0 Moderate protein-calorie malnutrition; I10 Essential (primary) hypertension; E87.6 Hypokalemia; D69.6 Thrombocytopenia, unspecified; F17.210 Nicotine dependence, cigarettes, uncomplicated; M79.1 Myalgia; Z68.24 Body mass index [BMI] 24.0-24.9, adult
CPT/HCPCS: 36415; 71046; 80048; 80053; 80074; 81001; 82140; 82805; 83036; 83735; 85007; 85025; 85610; 86850; 86900; 86901; 87040; 87086; 87207; 93005; 93010; J0692; J1650; J1885; J3370; J3475; J3480; J7030; J7040; J7042